=== PATIENT | female | born 1955 | race Caucasian/White ===

== ENCOUNTER → 2017-08-21 | Outpatient (REF) | payer OTHER | LOC: M SMT 17:01 | PROVIDERS: ATTEND Urology | DX: Z85.51 Personal history of malignant neoplasm of bladder (principal) ==

== ENCOUNTER → 2017-10-12 | Outpatient (CLI) | payer OTHER ==
[2017-10-12 12:03] LABS: ANION GAP 6 MEQ/L (8-16); BLOOD UREA NITROGEN 21 MG/DL (7-18); CALCIUM LEVEL 9.3 MG/DL (8.8-10.2); CARBON DIOXIDE LEVEL 34 MEQ/L (21-32); CHLORIDE LEVEL 102 MEQ/L (98-107); CREATININE FOR GFR 0.79 MG/DL (0.55-1.02); GLOMERULAR FILTRATION RATE > 60.0 (>45); GLUCOSE, FASTING 82 MG/DL (70-100); POTASSIUM SERUM 4.4 MEQ/L (3.5-5.1); SODIUM LEVEL 142 MEQ/L (136-145)
== END ==
LOC: M LAB 10:51
DX: M20.42 Other hammer toe(s) (acquired), left foot (principal)
CPT/HCPCS: 93005

== ENCOUNTER → 2017-10-13 | Outpatient (CLI) | payer OTHER | LOC: M RAD 10:27 | DX: Z12.31 Encounter for screening mammogram for malignant neoplasm of breast (principal) | CPT/HCPCS: 77067 ==

== ENCOUNTER 2017-10-26 07:56 | Day surgery (SDC) | payer OTHER ==
[2017-10-26] MEDS ORDERED: LR 1,000 ML IV ×3 (08:30→13:45)
[2017-10-26] MEDS ORDERED: PROPOFOL 200 MG/20 ML VIAL As Ordered (08:59)
[2017-10-26] MEDS ORDERED: dexameTHASONE 4 MG/ML 1ML VIAL (J1100) As Ordered (08:59)
[2017-10-26] MEDS ORDERED: LIDOCAINE 2% INJ 100 MG/5 ML SDV (FOR ANES.) As Ordered (08:59)
[2017-10-26] MEDS ORDERED: KETOROLAC 60 MG/2 ML VIAL (J1885) As Ordered (08:59)
[2017-10-26] MEDS ORDERED: fentaNYL 100 MCG/2 ML INJECTION (J3010) As Ordered ×3 (08:59→12:59)
[2017-10-26] MEDS ORDERED: ONDANSETRON 4MG/2ML VIAL (J2405) As Ordered ×2 (08:59→12:48)
[2017-10-26] MEDS ORDERED: MIDAZOLAM INJ 2 MG/2 ML VIAL (J2250) As Ordered (09:02)
[2017-10-26 09:03] LABS: BEDSIDE GLUCOSE 87 MG/DL (80-115)
[2017-10-26] MEDS ORDERED: ePHEDrine INJ 50 MG/ML VIAL As Ordered (10:47)
[2017-10-26] MEDS ORDERED: GLYCOPYRROLATE INJ 0.2 MG/ML 2 ML VIAL As Ordered (10:56)
[2017-10-26] MEDS: BUPIVACAINE HCL 0.5% 30 ML VIAL As Ordered (12:31)
[2017-10-26] MEDS ORDERED: traMADol 50 MG TAB As Ordered (12:48)
[2017-10-26] MEDS: ONDANSETRON 4MG/2ML VIAL (J2405) IV (12:59)
[2017-10-26] MEDS: traMADol 50 MG TAB PO (12:59)
[2017-10-26] MEDS: fentaNYL 100 MCG/2 ML INJECTION (J3010) IV (13:05)
[2017-10-26] MEDS ORDERED: PERCOCET 5MG/325MG TAB PO (13:45)
[2017-10-26] MEDS ORDERED: ACETAMINOPHEN 500 MG TAB PO (14:00)
== END 2017-10-26 14:40 | disposition home or self-care (01) ==
LOC: M SDC 07:56
DX: M20.42 Other hammer toe(s) (acquired), left foot (principal); M20.5X2 Other deformities of toe(s) (acquired), left foot; E78.00 Pure hypercholesterolemia, unspecified; R73.03 Prediabetes; F32.9 Major depressive disorder, single episode, unspecified; F41.9 Anxiety disorder, unspecified; M79.7 Fibromyalgia; Z85.51 Personal history of malignant neoplasm of bladder; Z79.899 Other long term (current) drug therapy
CPT/HCPCS: 28285

== ENCOUNTER 2018-04-10 04:51 | Emergency (ER) | payer OTHER | END 2018-04-10 07:29 | disposition home or self-care (01) | LOC: M ED 04:51 | DX: S00.83XA Contusion of other part of head, initial encounter (principal); W06.XXXA Fall from bed, initial encounter; Y92.013 Bedroom of single-family (private) house as the place of occurrence of the external cause; K58.9 Irritable bowel syndrome, unspecified; G25.81 Restless legs syndrome; M79.7 Fibromyalgia; F41.9 Anxiety disorder, unspecified; F33.9 Major depressive disorder, recurrent, unspecified; Z79.899 Other long term (current) drug therapy; Z88.1 Allergy status to other antibiotic agents; Z88.5 Allergy status to narcotic agent; Z88.8 Allergy status to other drugs, medicaments and biological substances; Z91.041 Radiographic dye allergy status | CPT/HCPCS: 70450 ==

== ENCOUNTER → 2018-06-11 | Outpatient (CLI) | payer OTHER | LOC: M WHC 11:22 | DX: M85.80 Other specified disorders of bone density and structure, unspecified site (principal) | CPT/HCPCS: 77080 ==

== ENCOUNTER → 2018-09-04 | Outpatient (REF) | payer OTHER ==
[~2018-09-04] MED LIST: HYDR12.55 PO; LEXA1TAB2 PO; LORA10CA PO; METF500T13 PO; MINO100C80 PO; NEUR300C PO; REQU1TAB14 PO; SIMV20TA2 PO; TRAM50TA2 PO
== END ==
LOC: M SMT 17:05
PROVIDERS: ATTEND Specialist
DX: Z85.51 Personal history of malignant neoplasm of bladder (principal)